=== PATIENT | male | born 1975 | race Caucasian/White ===

== ENCOUNTER 2023-01-02 14:25 | Emergency (ER) | payer OTHER ==
[2023-01-02 14:45] VITALS: RESP 20; TEMP 97.7
[2023-01-02] MEDS ORDERED: TORAdol 30 mg Injection IV ONE (15:08)
[2023-01-02 15:20] LABS: Absolute Neutrophil Ct (ANC) 2.73 x10^3/uL (1.4-6.9); BASOPHIL % 0.6 % (0.0-0.4); Basophil (Absolute #) 0.03 x10^3/uL (0-0.4); Eosinophil % 0.9 % (0.00-5.0); Eosinophil (Absolute #) 0.04 x10^3/uL (0-0.5); Hematocrit 39.8 % (42-50); Hemoglobin 13.5 g/dL (12.5-18.0); Lymphocyte (Absolute #) 1.45 x10^3/uL (1.0-4.6); Lymphocytes % 30.9 % (24.0-44.0); Mean Cell Volume 91.7 fL (78-100); Mean Corpuscular Hemoglobin 31.1 pg (26-32); Mean Corpuscular Hgb Concent. 33.9 g/dL (32-36); Mean Platelet Volume 9.4 fL (7.5-11.0); Monocyte (Absolute #) 0.44 x10^3/uL (0.0-1.3); Monocytes % 9.4 % (0.0-12.0); Neutrophil % 58.2 % (36.0-66.0); Platelet Count 160 x10^3/uL (150-450); Red Blood Count 4.34 x10^6/uL (4.1-5.6); Red Cell Distribution Width 12.6 % (11.5-14.0); White Blood Count 4.7 x10^3/uL (4.0-10.5)
[2023-01-02] MEDS ORDERED: TORAdol 30 mg Injection ONE (15:21)
[2023-01-02 15:34] LABS: ALBUMIN 4.1 g/dL (3.5-5.0); ANION GAP 12.5 MEQ/L (5-15); BILIRUBIN,TOTAL 0.7 mg/dL (0.2-1.3); Creatinine 1 1.19 mg/dL (0.66-1.25); EST GLOMERULAR FILTRATION RATE 75.4 ML/MIN; Potassium 3.7 mmol/L (3.5-5.1); Total Protein 7.2 g/dL (6.3-8.2)
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
[2023-01-02 17:27] VITALS: BP 120/88; PULSE 68
[2023-01-02 18:00] VITALS: O2SAT 99
== END 2023-01-02 17:39 | disposition home or self-care (01) ==
LOC: ED 14:25
DX: S16.1XXA Strain of muscle, fascia and tendon at neck level, initial encounter (principal); S39.012A Strain of muscle, fascia and tendon of lower back, initial encounter; V49.40XA Driver injured in collision with unspecified motor vehicles in traffic accident, initial encounter; R51.9 Headache, unspecified; M25.562 Pain in left knee; R07.9 Chest pain, unspecified; I10 Essential (primary) hypertension; Z79.899 Other long term (current) drug therapy; Z79.891 Long term (current) use of opiate analgesic
CPT/HCPCS: 36000; 36415; 70450; 71260; 72125; 73562; 74177; 80053; 82150; 83690; 85025; 96374; 99285; J1885